=== PATIENT | male | born 1990 | race Caucasian/White ===

== ENCOUNTER 2017-05-26 15:23 | Emergency (ER) | payer OTHER ==
[~2017-05-26] VITALS: Wt 146.0 kg
[~2017-05-26 15:23] MED LIST: CARV6.25 PO; CYCL-319 PO; HYDR-3498 PO; IBUP-1542 PO; IBUP400T22 PO
[2017-05-26] MEDS ORDERED: LACTATED RINGER'S 1,000 ML IV STA (16:35)
[2017-05-26] MEDS ORDERED: SOD CHLORIDE 0.9% 1,000 ML IV STA (16:35)
[2017-05-26 16:51] LABS: BASOPHIL # 0.1 10^3/ul (0.0-0.1); BASOPHILS % 0.7 % (0.0-2.0); EOSINOPHILS # 0.2 10^3/ul (0.0-0.5); EOSINOPHILS % 1.9 % (0.0-7.0); HEMATOCRIT 44.6 % (42.0-52.0); HEMOGLOBIN 15.1 g/dl (14.0-18.0); LYMPHOCYTES # 2.5 10^3/ul (0.8-2.9); LYMPHOCYTES % 20.9 % (15.0-51.0); MEAN CORPUSCULAR HEMOGLOBIN 30.4 pg (29.0-33.0); MEAN CORPUSCULAR HGB CONC 33.9 g/dl (32.0-37.0); MEAN CORPUSCULAR VOLUME 89.7 fl (82.0-101.0); MEAN PLATELET VOLUME 10.5 fl (7.4-10.4); MONOCYTES % 8.1 % (0.0-11.0); NEUTROPHIL # 7.9 10^3/ul (1.6-7.5); NEUTROPHILS % 65.6 % (39.0-77.0); PLATELET COUNT 312 10^3/UL (140-415); RED BLOOD COUNT 4.97 10^6/ul (4.70-6.10); RED CELL DISTRIBUTION WIDTH 13.8 % (11.5-14.5); WHITE BLOOD COUNT 12.1 10^3/ul (4.8-10.8)
--- NOTE | 2017-05-26 16:52 | ERD ---
ER Documentation Chief Complaint Chief Complaint "blood sugar is 300" HPI 26-year-old male with a history of hypertension, type 2 diabetes, obesity, and gastric ulcers presenting to the ER complaining of generalized weakness and feels generally unwell. He noted his blood sugar was 300 at home today. He does endorse a poor diet. He usually takes metformin 1 g twice daily for his diabetes. He is not on insulin. He denies any chest pain, shortness of breath , nausea, vomiting. He does endorse chronic abdominal pain secondary to his ulcers which has not changed. No hematochezia or melena. ROS All systems reviewed and are negative except as per history of present illness. Medications Home Meds Active Scripts Omeprazole* (Omeprazole*) 40 Mg Capsule., 40 MG PO DAILY, #30 CAP Prov:GELY ALMARAZ MD 05/26/17 Ibuprofen* (Motrin*) 600 Mg Tab, 600 MG PO Q6, #10 TAB Prov:MANJULA PERERA NP 06/18/16 Cyclobenzaprine Hcl* (Cyclobenzaprine Hcl*) 10 Mg Tablet, 5 MG PO TID, #15 TAB Prov:RADHA PARRY LANDSCAPE ACCOUNT MANAGER 07/25/15 Hydrocodone Bit-Acetaminophen* ([place]*) 5-325 Mg Tab, 1 TAB PO Q6 Y for PAIN, # 20 TAB Prov:RADHA PARRY NP 07/25/15 Ibuprofen* (Motrin*) 400 Mg Tab, 400 MG PO Q6H Y for PAIN AND OR ELEVATED TEMP, #30 TAB Prov:RADHA PARRY NP 07/25/15 Ibuprofen* (Motrin*) 600 Mg Tab, 600 MG PO Q6H Y for PAIN AND OR ELEVATED TEMP, #30 TAB Prov:TESSIE YORK MD 06/18/15 Reported Medications Carvedilol* (Coreg*) Unknown Strength Tablet, PO BID, #60 TAB 07/25/15 Allergies Allergies: Coded Allergies: No Known Allergy (Unverified , 06/18/15) PMhx/Soc History of Surgery: No Anesthesia Reaction: No Hx Neurological Disorder: No Hx Respiratory Disorders: Yes (sleep apnea) Hx Cardiac Disorders: No Hx Psychiatric Problems: No Hx Miscellaneous Medical Probl: Yes (DM II, hypertension) Hx Alcohol Use: Yes Hx Substance Use: No Hx Tobacco Use: No Smoking Status: Never smoker FmHx Family History: diabetes Physical Exam Vitals Vital Signs Date Time Temp Pulse Resp B/P Pulse Ox O2 Delivery O2 Flow Rate FiO2 05/26/17 18:59 98.3 85 20 137/81 99 Room Air 05/26/17 15:29 98.2 96 20 134/71 96 Physical Exam Const: Obese, no apparent distress, nontoxic Head: Atraumatic Eyes: Normal Conjunctiva ENT: Normal External Ears, Nose and Mouth. Neck: Full range of motion..~ No meningismus. Resp: Clear to auscultation bilaterally Cardio: Regular rate and rhythm, no murmurs Abd: Soft, non tender, non distended. Normal bowel sounds Skin: No petechiae or rashes Back: No midline or flank tenderness Ext: No cyanosis, or edema Neur: Awake and alert, oriented 3, strength and sensations intact in all 4 extremities. No facial asymmetry. Normal speech. Psych: Normal Mood and Affect Result Diagram: 05/26/17 1635 05/26/17 1635 Results 24 hrs Laboratory Tests Test 05/26/17 16:25 05/26/17 16:35 05/26/17 18:40 05/26/17 18:48 Bedside Glucose 252mg/dL White Blood Count 12.110^3/ul Red Blood Count 4.9710^6/ul Hemoglobin 15.1g/dl Hematocrit 44.6% Mean Corpuscular Volume 89.7fl Mean Corpuscular Hemoglobin 30.4pg Mean Corpuscular Hemoglobin Concent 33.9g/dl Red Cell Distribution Width 13.8% Platelet Count 19189^3/UL Mean Platelet Volume 10.5fl Neutrophils % 65.6% Lymphocytes % 20.9% Monocytes % 8.1% Eosinophils % 1.9% Basophils % 0.7% Nucleated Red Blood Cells % 0.0/100WBC Neutrophils # 7.910^3/ul Lymphocytes # 2.510^3/ul Monocytes # 1.010^3/ul Eosinophils # 0.210^3/ul Basophils # 0.110^3/ul Nucleated Red Blood Cells # 0.010^3/ul Sodium Level 137mmol/L Potassium Level 4.3mmol/L Chloride Level 97mmol/L Carbon Dioxide Level 31mmol/L Anion Gap 13 Blood Urea Nitrogen 9mg/dl Creatinine 0.84mg/dl Glucose Level 258mg/dl Calcium Level 8.7mg/dl Urine Color YELLOW Urine Clarity CLEAR Urine pH 6.0 Urine Specific [place] 1.014 Urine Ketones NEGATIVEmg/dL Urine Nitrite NEGATIVEmg/dL Urine Bilirubin NEGATIVEmg/dL Urine Urobilinogen NEGATIVEmg/dL Urine Leukocyte Esterase NEGATIVELeu/ul Urine Hemoglobin NEGATIVEmg/dL Urine Glucose 1+mg/dL Urine Total Protein NEGATIVEmg/dl Bedside Urine pH (LAB) 6.0 Bedside Urine Protein (LAB) Negative Bedside Urine Glucose (UA) Negative Bedside Urine Ketones (LAB) Negative Bedside Urine Blood Trace-lysed Bedside Urine Nitrite (LAB) Negative Bedside Urine Leukocyte Esterase (L Negative Current Medications Medications (Trade) Dose Ordered Sig/Becca Route PRN Reason Start Time Stop Time Status Last Admin Dose Admin Sodium Chloride 1,000 ml @ 1,000 mls/hr Q1H STAT IV 05/26/17 16:35 05/26/17 17:34 DC 05/26/17 16:41 Lactated Ringer's (Lr) 1,000 ml @ 1,000 mls/hr Q1H STAT IV 05/26/17 16:35 05/26/17 17:34 DC 05/26/17 16:41 Famotidine (Pepcid) 40 mg ONCE ONCE PO 05/26/17 17:00 05/26/17 17:01 DC 05/26/17 16:41 Procedures/MDM EMERGENT LABS AND DIAGNOSTIC STUDIES: Lab Results above were reviewed and interpreted by me. CBC: no anemia or evidence of infection BMP: Hyperglycemia. No evidence of electrolyte abnormality, renal failure, liver failure, or biliary obstruction UA: no evidence of infection or ketosis Initial Nursing notes reviewed. Previous Medical Records requested via the Electronic Health Record. EMERGENCY DEPARTMENT COURSE / MEDICAL DECISION MAKING: Patient is presenting with hyperglycemia and stable vitals. I have a low suspicion for acidosis, acute coronary syndrome, sepsis. Labs were unremarkable other than hyperglycemia. He was given 1.5 L of IV fluids with improvement of his symptoms. Urinalysis did not show evidence of ketosis. I counseled the patient on the importance of controlling his diet. He has a follow-up scheduled with his PCP in 1 week. Return precautions were discussed. Patient's blood pressure was elevated (>120/80) but appears stable without evidence of hypertensive emergency or urgency. The patient was counseled about the risks of hypertension and urged to pursue outpatient monitoring and therapy within a week with their primary care physician. Departure Diagnosis: Primary Impression: Hyperglycemia Condition: GELY Walter MD May 26, 2017 16:52
[2017-05-26] MEDS ORDERED: FAMOTIDINE 20 MG TAB PO ONE (17:00)
[2017-05-26 17:33] LABS: CALCIUM 8.7 mg/dl (8.4-10.2); CREATININE 0.84 mg/dl (0.61-1.24); POTASSIUM 4.3 mmol/L (3.5-5.1)
[2017-05-26] MEDS ORDERED: OMEP40CA6 PO (18:15)
[2017-05-26 18:49] LABS: URINE BLOOD (Dip) POC Trace-lysed (NEGATIVE)
[2017-05-26 18:59] VITALS: BP 137/81; PULSE 85; RESP 20; TEMP 98.3
[2017-05-26 19:10] LABS: ADD UMIC NO; UR ASCORBIC ACID NEGATIVE (NEGATIVE); UR BILIRUBIN (Dip) NEGATIVE (NEGATIVE); UR BLOOD (Dip) NEGATIVE (NEGATIVE); UR CLARITY CLEAR (CLEAR); UR COLOR YELLOW (YELLOW); UR GLUCOSE (Dip) 1+ mg/dL (NEGATIVE); UR KETONES (Dip) NEGATIVE (NEGATIVE); UR LEUKOCYTE ESTERASE (Dip) NEGATIVE Leu/ul (NEGATIVE); UR NITRITE (Dip) NEGATIVE (NEGATIVE); UR SPECIFIC GRAVITY (Dip) 1.014 (1.003-1.030); UR TOTAL PROTEIN (Dip) NEGATIVE (NEGATIVE); UR UROBILINOGEN (Dip) NEGATIVE (NEGATIVE)
== END 2017-05-26 19:44 | disposition home or self-care (01) ==
LOC: E/R 15:23
DX: E11.65 Type 2 diabetes mellitus with hyperglycemia (principal); I10 Essential (primary) hypertension; E66.9 Obesity, unspecified
CPT/HCPCS: 36415; 80048; 81003; 82962; 85025; J7030; J7120; Z7502; Z7610

== ENCOUNTER 2017-06-14 13:46 | Emergency (ER) | payer OTHER ==
[~2017-06-14] VITALS: Ht 185.4 cm; Wt 143.0 kg
[~2017-06-14 13:46] MED LIST changes: +OMEP40CA6 PO
[2017-06-14 13:54] VITALS: Ht 185.4 cm; Wt 143.0 kg
[2017-06-14] MEDS ORDERED: HYDR-842 PO (16:49)
--- NOTE | 2017-06-14 17:38 | ERD ---
ER Documentation Chief Complaint Chief Complaint itching all over body x 3 months , b/l ear tingling x 3 months HPI This is a 26-year-old male history of diabetes type 2 on metformin presenting to the emergency department complaining of generalized itchiness throughout his whole body for the past 3 months. Patient also states that sometimes he will have tingling and numbness around his ears. He denies any ear pain. Patient denies any rash, fevers. Denies any other medications. Patient is concerned about his blood sugar because he has not checked it ROS All systems reviewed and are negative except as per history of present illness. Medications Home Meds Active Scripts Hydroxyzine Hcl* (Atarax*) 25 Mg Tab, 25 MG PO Q6H Y for ITCHING, #30 TAB Prov:HAVEN LEARY PA-C 06/14/17 Omeprazole* (Omeprazole*) 40 Mg Capsule.dr, 40 MG PO DAILY, #30 CAP Prov:GELY ALMARAZ MD 05/26/17 Ibuprofen* (Motrin*) 600 Mg Tab, 600 MG PO Q6, #10 TAB Prov:MANJULA PERERA NP 06/18/16 Cyclobenzaprine Hcl* (Cyclobenzaprine Hcl*) 10 Mg Tablet, 5 MG PO TID, #15 TAB Prov:RADHA PARRY NP 07/25/15 Hydrocodone Bit-Acetaminophen* ([place]*) 5-325 Mg Tab, 1 TAB PO Q6 Y for PAIN, # 20 TAB Prov:RADHA PARRY NP 07/25/15 Ibuprofen* (Motrin*) 400 Mg Tab, 400 MG PO Q6H Y for PAIN AND OR ELEVATED TEMP, #30 TAB Prov:RADHA PARRY NP 07/25/15 Ibuprofen* (Motrin*) 600 Mg Tab, 600 MG PO Q6H Y for PAIN AND OR ELEVATED TEMP, #30 TAB Prov:TESSIE YORK MD 06/18/15 Reported Medications Carvedilol* (Coreg*) Unknown Strength Tablet, PO BID, #60 TAB 07/25/15 Allergies Allergies: Coded Allergies: No Known Allergy (Unverified , 06/18/15) PMhx/Soc Medical and Surgical Hx: pt denies Surgical Hx History of Surgery: No Anesthesia Reaction: No Hx Neurological Disorder: No Hx Respiratory Disorders: Yes (sleep apnea) Hx Cardiac Disorders: Yes (HTN) Hx Psychiatric Problems: No Hx Miscellaneous Medical Probl: Yes (DM II, hypertension) Hx Alcohol Use: No Hx Substance Use: No Hx Tobacco Use: No Smoking Status: Never smoker Physical Exam Vitals Vital Signs Date Time Temp Pulse Resp B/P Pulse Ox O2 Delivery O2 Flow Rate FiO2 06/14/17 13:54 98.1 96 18 122/58 98 Physical Exam GENERAL: Obese HENT: NC/AT, bilateral tympanic membrane is normal with good cone of light, nares patent, oropharynx clear without exudates EYES: Conjunctiva normal, PERRLA, EOMI, no nystagmus noted NECK: Supple, no lymphadenopathy PULM: CTA bilaterally, no rales, rhonchi, or wheezing heard CV: Normal S1S2, RRR, good capillary refill GI: Soft, non-distended, normal bowel sounds, non-tender BACK: No midline tenderness, no masses, No CVAT EXT: No clubbing, cyanosis, or edema NEURO: Alert and orientated to person, place, and time. CN II-IIX intact. Gait and coordination were normal. Hand block trimmer strength were equal and within normal limits SKIN: Intact, normal turgor PSYCH: Normal mood and mentation, patient denied SI Results 24 hrs Laboratory Tests Test 06/14/17 16:45 Bedside Glucose 106mg/dL Procedures/MDM This is a 26-year-old male with a history of diabetes type 2 presenting to the emergency department complaining of generalized itchiness for the past few months. On examination patient did not have any evidence of rash, and anaphylaxis. There is no evidence of scabies. I discussed the patient that he will benefit from seeing his primary care physician to get a referral to see a commercial management accountant. A prescription for Atarax has been provided. Patient's Accu- Chek was within normal limits. Patient stable to be discharged home to follow- up with dermatology. Departure Diagnosis: Primary Impression: History of diabetes mellitus Additional Impression: Generalized pruritus Condition: Stable Patient Instructions: Dermatitis, Non-Specific Additional Instructions: FOLLOW UP WITH YOUR PRIMARY CARE PHYSICIAN TOMORROW.Return to this facility if you are not improving as expected. Take all medicines as directed. You have been given a medicine which may cause drowsiness.DO NOT DRIVE OR OPERATE DANGEROUS MACHINERY while taking this medicine! HAVEN LEARY PA-C Jun 14, 2017 17:38
== END 2017-06-14 18:07 | disposition home or self-care (01) ==
LOC: FTE 13:46
DX: L29.9 Pruritus, unspecified (principal); I10 Essential (primary) hypertension; E11.9 Type 2 diabetes mellitus without complications; Z79.84 Long term (current) use of oral hypoglycemic drugs
CPT/HCPCS: 82962; Z7502; 99283

== ENCOUNTER 2017-06-26 13:35 | Emergency (ER) | END 2017-06-26 16:40 | disposition home or self-care (01) ==